=== PATIENT | female | born 1960 | race Caucasian/White ===

== ENCOUNTER → 2017-01-20 | Outpatient (CLI) | payer MEDICAID, OTHER ==
[~2017-01-20] VITALS: Ht 162.6 cm; Wt 89.4 kg
[~2017-01-20] MED LIST: ASPI-482 PO; CINN500C2 PO; FENO200C PO; LISI10TA2 PO; METF-620 PO; MULT1TAB52 PO; NORMAL SALINE IV ONE; OMEG1CAP27 PO; OXYC-323 PO; PRAV40TA2 PO; SINCALIDE IV ONE; UBID100C26 PO
--- NOTE | 2017-01-20 11:14 | RAD ---
Abdominal ultrasound, 01/20/2017: History: Right upper quadrant and epigastric pain The gallbladder is within normal limits in size. It contains echogenic foci with posterior acoustic shadowing compatible with cholelithiasis. The gallbladder wheeler are not significantly thickened. No pericholecystic edema is seen. The common hepatic duct is of normal caliber. The liver demonstrates increased echogenicity in a diffuse pattern, most commonly due to fatty change. It measures 20 cm in craniocaudad extent at the level of the right lobe. No hepatic mass is seen. The visualized portions of the pancreas and both kidneys are unremarkable. The spleen is of normal size. The abdominal aorta and inferior vena cava are unremarkable. No free fluid is evident in the abdomen. IMPRESSION: 1. Cholelithiasis. 2. Hepatomegaly with increased hepatic echogenicity compatible with hepatic steatosis.
--- NOTE | 2017-01-20 13:01 | RAD ---
Radionuclide hepatobiliary scan with gallbladder ejection fraction, 01/20/2017: History: Right upper quadrant pain, nausea, indigestion Following IV injection of 5.5 mCi of technetium 99m Choletec there was prompt uptake of the radionuclide from the blood in the liver. Activity is present in the gallbladder and bile ducts at 15 minutes. Small bowel activity develops at 25 minutes. Additional images the gallbladder was performed following IV injection of 1.7 mcg of cholecystokinin. The gallbladder ejection fraction was calculated at 25%. 30-50% is considered to be the borderline low range. A small amount of bile reflux into the stomach occurred during the exam. IMPRESSION: 1. No evidence of cystic duct or common bile duct obstruction. 2. Decreased gallbladder ejection fraction of 25%.
== END | disposition home or self-care (01) ==
LOC: US 10:09
PROVIDERS: ATTEND Physician Assistant
DX: K80.20 Calculus of gallbladder without cholecystitis without obstruction (principal); K76.0 Fatty (change of) liver, not elsewhere classified; R16.0 Hepatomegaly, not elsewhere classified
CPT/HCPCS: 76700; 78226; 96374; 96375; A9537